=== PATIENT | female | born 1950 | race Caucasian/White ===

== ENCOUNTER 2016-07-21 15:35 | Emergency (ER) | payer MEDICARE ==
[2016-07-21 17:02] LABS: BASOPHIL 0.5 % (0-2); EOSINOPHIL 3.3 % (0-7); HCT 39.7 % (37.0-47.0); HGB 13.2 g/dl (12.5-16.0); LYMPHOCYTE 23.4 % (15-48); MCH 29.8 pg (25.0-31.0); MCHC 33.2 g/dL (32.0-36.0); MCV 89.6 fL (78.0-100.0); MONOCYTE 7.1 % (0-12); MPV 9.2 fL (6.0-9.5); NEUTROPHIL 65.7 % (41-80); PLT 241 K/uL (150-400); RBC 4.43 M/uL (4.20-5.40); RDW 13.8 % (11.5-14.0); WBC 6.4 K/uL (4.0-10.5)
[2016-07-21 17:17] LABS: ALBUMIN 3.7 g/dL (3.4-4.8); BILIRUBIN - TOTAL 0.3 mg/dL (0.1-1.0); CREATININE 0.8 mg/dL (0.5-1.0); MAGNESIUM 1.93 mg/dL (1.40-2.10); PHOSPHORUS 3.4 mg/dL (2.7-4.5); TOTAL PROTEIN 6.7 g/dL (6.4-8.3)
== END 2016-07-21 19:41 | disposition home or self-care (01) ==
LOC: FER 15:35
PROVIDERS: Emergency Medicine
DX: M54.2 Cervicalgia (principal); J44.9 Chronic obstructive pulmonary disease, unspecified; Z88.2 Allergy status to sulfonamides; Z88.5 Allergy status to narcotic agent; Z87.891 Personal history of nicotine dependence; Z79.51 Long term (current) use of inhaled steroids; Z99.81 Dependence on supplemental oxygen
CPT/HCPCS: 36415; 71020; 80053; 83735; 84100; 85025; 85651; 86140; 93005; J1170; J2800; J3360